=== PATIENT | male | born 1990 | race Caucasian/White ===

== ENCOUNTER → 2017-03-15 | Outpatient (CLI) | payer OTHER | LOC: BMCIMAGING 16:50 | PROVIDERS: ATTEND Family Medicine | DX: M54.2 Cervicalgia (principal) ==

== ENCOUNTER 2017-05-30 23:49 | Emergency (ER) | payer SELFPAY ==
[2017-05-30 23:56] VITALS: BP 108/72; PULSE 88; RESP 18; TEMP 98.2; O2SAT 97
[2017-05-31] MEDS ORDERED: CHLORDIAZEPOXIDE 25MG PREPK#6 BTL TAKEHOME ONE (00:42)
--- NOTE | 2017-05-31 00:42 | EDPHY ---
H & P Stated Complaint: REEVAULATION FOR ABCESS UNDER LEFT ARM. Time Seen by Provider: 05/31/17 00:11 HPI/ROS: HPI The patient presents for wound check. He was going through intake [facility] and they are staff requested that he come to the emergency room for a wound check. He is 4 days status post incision and drainage of multiple upper extremity abscesses which he sustained through injection drug use. The procedure was performed under procedural sedation in the emergency department. He has not changed his dressings since because he went to [facility] after he was in the emergency department. He took his 1st dose of Bactrim tonight. He denies any fevers or chills, nausea or vomiting. He does not have any arm pain. REVIEW OF SYSTEMS Constitutional: No fever, no chills. Skin: No rashes. Neurological: No headache. PMHx: Healthy Soc Hx: History of IV drug use, going to the [facility] PHYSICAL General Appearance: Alert, no distress Eyes: Pupils equal and round no pallor or injection ENT, Mouth: Mucous membranes moist Respiratory: Breathing comfortably Extremities: Left arm with deltoid abscess site with packing in place with moderate amount of whitish drainage, wound measures about 1 cm with pink granulation tissue surrounding it, the region is not tender to palpation and there is no surrounding erythema, I am not able to express any pus; there is a 2nd open wound with packing in place in the anterior medial portion of his mid arm, pink granulation tissue surrounds this, it is not tender Psychiatric: Patient is oriented X 3, there is no agitation Source: Patient Exam Limitations: No limitations - Personal History Current Tetanus Diphtheria and Acellular Pertussis (TDAP): Yes Tetanus Vaccine Date: within last 10 years - Medical/Surgical History Hx Asthma: No Hx Chronic Respiratory Disease: No Hx Diabetes: No Hx Cardiac Disease: No Hx Renal Disease: No Hx Cirrhosis: No Hx Alcoholism: No Hx HIV/AIDS: No Hx Splenectomy or Spleen Trauma: No Other PMH: IV DRUG USER, ABCESS. MEDICAL seizures. surgery right ankle surgery - Social History Smoking Status: Heavy smoker Constitutional: Initial Vital Signs Temperature (C) 36.8 C 05/30/17 23:53 Heart Rate 88 05/30/17 23:53 Respiratory Rate 18 05/30/17 23:53 Blood Pressure 108/72 05/30/17 23:53 O2 Sat (%) 97 05/30/17 23:53 O2 Delivery Mode Room Air Allergies/Adverse Reactions: No Known Allergies Allergy (Unverified 12/07/14 17:07) Medical Decision Making Procedures: Bedside skin and soft tissue left arm Ultrasound- performed and interpreted by me. Indication: Status post incision and drainage Findings: No cobblestoning, no fluid collection, no foreign body Impression: No fluid collection, no obvious cellulitis Differential Diagnosis: This is a 27-year-old male who presents with wound check, status post incision and drainage of left upper extremity abscesses performed in the emergency department 4 days ago. He has no systemic signs of illness. In the emergency department, large amount of packing was removed from both wounds, I was unable to express any pus. There is minimal tenderness of the area with no induration or erythema. Bedside ultrasound was performed showing no fluid collections. I feel he is healing appropriately from his procedure and there is no persistent infection. I have encouraged him to complete the course of Bactrim and we will dress his wounds here. He will be discharged to the [facility] with a course of Librium. Departure - Departure Disposition: Home, Routine, Self-Care Clinical Impression: Encounter for wound re-check Condition: Good Instructions: Warm Compress or Soak (ED) Additional Instructions: Please return to the emergency room for any additional redness, drainage, pain in your arm. You should change your dressings at least once a day. Is it is okay to get your wounds wet in the shower with regular water. Referrals: Josesito Avalos MD [Primary Care Provider] - As per Instructions
== END 2017-05-31 00:59 | disposition home or self-care (01) ==
DX: Z48.01 Encounter for change or removal of surgical wound dressing (principal); F17.200 Nicotine dependence, unspecified, uncomplicated

== ENCOUNTER 2017-10-13 08:42 | Inpatient (IN) | payer MEDICAID, OTHER ==
--- NOTE | 2017-10-13 09:00 | EDPHY ---
H & P Stated Complaint: Abcess at IV injection RUE site last week;also slipped/fell on same arm Time Seen by Provider: 10/13/17 08:49 HPI/ROS: CHIEF COMPLAINT: Right antecubital fossa pain, erythema, drainage HISTORY OF PRESENT ILLNESS: 27-year-old male history of IV cocaine use complaining of pain, erythema, drainage the right antecubital fossa for the past 3 days. He notes that the erythema has increased intensity, he also notes decreased range of motion of the right elbow. No fever no chills. No flu-like symptoms. No chest pain. No dyspnea. No known history of hepatitis C. No known history of cutaneous MRSA. REVIEW OF SYSTEMS: A ten point review of systems was performed and is negative with the exception of the items mentioned in the HPI PAST MEDICAL & SURGICAL HISTORY: No pertinent medical or surgical history SOCIAL HISTORY: IV cocaine use PHYSICAL EXAM (Prior to examination, patient consented to physical exam, hands were washed and my usual and customary physical exam procedures followed) 1) GENERAL: Well-developed, well-nourished, alert and oriented. Ppears uncomfortable, anxious. 2) HEAD: Normocephalic, atraumatic 3) HEENT: Pupils equal, round, reactive to light bilaterally. Sclera anicteric. 4) NECK: Full range of motion, no meningeal signs. 5) LUNGS: Clear auscultation bilaterally, no wheezes, no rhonchi, no retractions. 6) HEART: Regular rate and rhythm, no murmur, no heave, no gallop. 7) ABDOMEN: No guarding, no rebound, no focal tenderness, negative McBurney's, negative Marinelli's, negative Rovsing's, negative peritoneal sign, 8) MUSCULOSKELETAL: Right upper extremity: Right antecubital fossa erythema, induration, tense tissue, keeping the elbow extended approximately 120 degrees, unable to flex or extend beyond the secondary to pain. No crepitus. No lymphangitic streaking. Positive axillary adenopathy. Distal pulses are intact , capillary refill is brisk. 9) BACK: No visual or palpable abnormality. 10) SKIN: No rash, no petechiae. 11) Psychiatric: Patient is oriented X 3, there is no agitation. DIFFERENTIAL DIAGNOSIS: In no particular include but limited to compartment syndrome, necrotizing fasciitis, abscess, cellulitis, septic arthritis - Personal History Current Tetanus Diphtheria and Acellular Pertussis (TDAP): Yes Tetanus Vaccine Date: within last 10 years - Medical/Surgical History Hx Asthma: No Hx Chronic Respiratory Disease: No Hx Diabetes: No Hx Cardiac Disease: No Hx Renal Disease: No Hx Cirrhosis: No Hx Alcoholism: No Hx HIV/AIDS: No Hx Splenectomy or Spleen Trauma: No Other PMH: IV DRUG USER, ABCESS. seizures. right ankle surgery - Social History Smoking Status: Heavy smoker Constitutional: Initial Vital Signs Temperature (C) 36.7 C 10/13/17 08:44 Heart Rate 96 10/13/17 08:44 Respiratory Rate 18 10/13/17 08:44 Blood Pressure 118/69 10/13/17 08:44 O2 Sat (%) 98 10/13/17 08:44 O2 Delivery Mode Room Air Allergies/Adverse Reactions: acetaminophen [From Tylenol] Allergy (Verified 10/13/17 09:47) Itching Home Medications: Medication Instructions Recorded NK [No Known Home Meds] 10/13/17 Medical Decision Making - Diagnostics Imaging Results: Imaging Impressions Extremity Ultrasound 10/13/17 09:01 Impression: Findings consistent with cellulitis with associated right antecubital fossa phlegmon without junior abscess formation at this time. Continued clinical follow-up is recommended with repeat ultrasound to assess for progression to abscess. Results called and discussed with Doug Viramontes PA-C on October 13, 2017 at 1041 hours. ED Course/Re-evaluation: 8:59 a.m.: I reviewed the patient's old medical records. I am concerned about the extent of the patient's symptoms. Plan will be diagnostic studies and plan on admission. Given IV Ancef. Tetanus is already up-to-date. Care of patient under supervision of secondary supervising physician Dr Ochoa with whom I discussed case 9:46 a.m.: Multiple attempts by the the nursing staff have attempted to obtain IV access, unsuccessfully. Plan will be PICC line. 10:19 a.m.: Awaiting PICC line placement laboratory studies. I consulted with hospitalistDanae at this time, plan will be admission to Dr. Ware. - Data Points Medications Given: Discontinued Medications Oxycodone HCl (Oxycodone Ir) 5 mg PO ONCE ONE Stop: 10/13/17 12:00 Last Admin: 10/13/17 12:03 Dose: 5 mg Departure - Departure Disposition: [facility] Acute Clinical Impression: Right arm cellulitis, Intravenous cocaine abuse Condition: Fair
[2017-10-13] MEDS ORDERED: oxyCODONE IR 5 MG TAB PO ONE (11:59)
[2017-10-13] MEDS ORDERED: oxyCODONE IR 5 MG TAB ONE (12:02)
[2017-10-13] MEDS ORDERED: ONDANSETRON DISINTEGRATING 4 MG TAB PO PRN (13:15)
[2017-10-13] MEDS ORDERED: ONDANSETRON 4 MG/2 ML VIAL IVP PRN ×2 (13:15→16:35)
[2017-10-13] MEDS ORDERED: HYDROmorphONE/DILAUDID 1 MG/ML INJ IVP PRN (13:15)
[2017-10-13] MEDS ORDERED: NICOTINE 21 MG/24 HR PATCH TD PRN (13:31)
[2017-10-13 13:58] LABS: PLATELET COUNT 310 10^3/uL (150-400)
[2017-10-13] MEDS ORDERED: LIDOCAINE 1% 300 MG/30 ML SDV ONE (14:05)
[2017-10-13 14:07] LABS: INR 1.2 (0.83-1.16); PROTIME(PATIENT) 15.4 SEC (12.0-15.0)
--- NOTE | 2017-10-13 14:08 | GHP ---
[f rep st] HISTORY AND PHYSICAL DATE OF ADMISSION: 10/13/2017 CHIEF COMPLAINT: Right arm pain and swelling. HISTORY OF PRESENT ILLNESS: The patient is a 27-year-old male with history of IV cocaine abuse who presents to the emergency department with 1 week of right upper extremity pain and swelling. He states he has a long history of IV drug use. He is mostly just using cocaine at this point. He has injected into all extremities, as well as his neck, and his veins have been sobered, and the emergency department is unable to obtain labs. He last injected in his right AC fossa 2 weeks ago. Shortly after that, he began to have some discomfort and pain in the region. One week ago, this became a bit red and some swelling set in. Over the past several days, the swelling has increased, and there is more focal redness surrounding the right AC fossa. He reports last night there was some drainage which looked like bloody pus. He denies fevers, chills, or rigors. He denies chest pain or shortness of breath. In the emergency department, a right upper extremity nonvascular ultrasound showed evidence of phlegmon but no focal abscess. Due to inability to obtain IV access, PICC line is ordered, labs and blood cultures will be drawn, and he will be admitted to the hospital for further evaluation. PAST MEDICAL HISTORY: 1. IV drug abuse, mostly cocaine, though distant history of methamphetamine. 2. Tobacco abuse. PAST SURGICAL HISTORY: None pertinent. MEDICATIONS: He takes no medications. ALLERGIES: Acetaminophen. FAMILY HISTORY: His father had lung cancer. SOCIAL HISTORY: Patient lives independently. He smokes close to a pack of cigarettes per day. IV drug abuse as above. He denies alcohol. REVIEW OF SYSTEMS: A 10-point review of systems was performed and is negative as per HPI. OBJECTIVE: VITAL SIGNS: Temperature is 36.7, blood pressure 118/69, heart rate 96, respiratory rate 18. He is 98% on room air. GENERAL: Patient is awake, alert, oriented, in no acute distress. HEENT: Head is atraumatic, normocephalic. Pupils equal, round, reactive to light. Extraocular movements intact. Oropharynx clear. Mucous membranes are moist. NECK: Supple. There is no JVD. HEART: Regular rate and rhythm without murmur. LUNGS: Clear to auscultation bilaterally. ABDOMEN: Soft, nondistended. Normoactive bowel sounds. EXTREMITIES: His right upper extremity has a 3-4 cm localized area of erythema surrounding his right AC fossa. There is some skin breakdown and sanguinous drainage without junior pus. There is also circumferential significant right elbow swelling and edema. He is unable to flex or extend his elbow, nor is he able to tolerate passive range of motion of his elbow due to severe pain. Extremities otherwise warm, well perfused. NEUROLOGIC: Grossly nonfocal. LABORATORY DATA: CBC, basic metabolic panel, bilirubin, INR, sed rate, and blood cultures are all pending, will be obtained at the time of PICC placement which is ordered. IMAGING: Right upper extremity nonvascular ultrasound shows findings consistent with cellulitis, with associated right AC fossa phlegmon without junior abscess formation. ASSESSMENT AND PLAN: The patient is a 27-year-old male with history of IV drug abuse who is admitted to the hospital with right upper extremity cellulitis. 1. Right upper extremity cellulitis. I am concerned for septic joint, given his excruciating pain with any attempted range of motion. PICC line is ordered due to inability to achieve IV access in the emergency department. Labs are pending. Blood cultures will be drawn, and he will be started on IV vancomycin. I discussed the case with Dr. Cobos, Orthopedic Surgery. The patient will be made n.p.o., pending orthopedic evaluation. In the meantime, will obtain an x-ray of the elbow to evaluate for joint effusion, and orthopedist will decide if he warrants joint aspiration to rule out septic joint and consider need for operative intervention. Will also defer MRI to our orthopedic real estate consultant. Infectious Disease consult is requested. I do not detect heart murmur. 2. IV drug abuse. Patient has had success with sobriety in the past and is plugged in with the [facility], as well as Narcotics Anonymous. Will request Case Management consult for ongoing resource counseling. In addition, will check HIV and hepatitis panel, both of which were negative in 2013. 3. Tobacco abuse. P.r.n. Nicoderm patch while hospitalized. 4. Basilic vein thrombosis noted on PICC placement. This is a superficial UE vein and his thrombosis may be related to his IVDA. No indication for anticoagulation, especially in the absence of symptoms 5. Deep venous thrombosis prophylaxis. Patient is low risk. Will place SCDs. CODE STATUS: Patient is full code. DISPOSITION: Patient admitted to inpatient status. I anticipate greater than 48 hours hospitalization for ongoing management of his right upper extremity infection. /[id number]/MODL MTDD
--- NOTE | 2017-10-13 14:19 | PDMN ---
Medical Necessity Medical necessity: C/M review: est. > 2 MN LOS for eval and TX of acute and persistent right upper extremity cellulitis requiring planned Orthopedic consult , Infectious disease consult, PICC placement, ontoing IV Vancomycin, comorbid history of IV drug abuse, mostly cocaine, though distant history of methamphetamine, tobacco abuse per H/P.
[2017-10-13] MEDS: oxyCODONE IR 5 MG TAB PO PRN ×3 (14:33→22:01)
[2017-10-13] MEDS: IBUPROFEN 200 MG TAB PO PRN ×2 (14:33→22:03)
[2017-10-13] MEDS ORDERED: BACITRACIN 50,000 UNITS/10 ML SYR IRR ONE (15:22)
[2017-10-13] MEDS ORDERED: POLYMYXIN B SULFATE 500,000 UNIT/10 ML SYR IRR ONE (15:22)
[2017-10-13] MEDS ORDERED: BUPIVACAINE 0.5% 10 ML SDV ONE (15:22)
--- NOTE | 2017-10-13 15:24 | PDHPUP ---
History & Physical Update H&P update statement: This history and physical update is based on an assessment of the patient which was completed after admission or registration (within 24 hours), but prior to the surgery/procedure. H&P update: H&P reviewed & patient examined, no change in patient's condition since H&P completed
[2017-10-13] MEDS ORDERED: BUPIVACAINE/EPI 0.5% 30 ML SDV ONE (15:25)
[2017-10-13] MEDS ORDERED: MIDAZOLAM 2 MG/2 ML VIAL IVP ONE (15:31)
--- NOTE | 2017-10-13 15:31 | PDANEPAE ---
ANE History of Present Illness 27 YO for i and d r arm ANE Past Medical History - Pulmonary History Hx Oxygen in Use at Home: No Hx Sleep Apnea: No - Endocrine History Hx Diabetes: No - Chronic Pain History Chronic Pain: No ANE Review of Systems Review of Systems: - Exercise capacity METS (RN): 4 METS ANE Patient History - Allergies Allergies/Adverse Reactions: acetaminophen [From Tylenol] Allergy (Verified 10/13/17 09:47) Itching - Home Medications Home Medications: NK [No Known Home Meds] 10/13/17 [Last Taken Unknown] - NPO status NPO Status: no food or drink >8 hours - Anes Hx Anes Hx: no prior problems - Smoking Hx Smoking Status: Current every day smoker ANE Labs/Vital Signs - Labs Result Diagrams: 10/13/17 13:47 10/13/17 13:47 - Vital Signs Blood Pressure: 130/58 Heart Rate: 91 Respiratory Rate: 16 O2 Sat (%): 96 Height: 5 ft 11.04 in Weight: 68.039 kg ANE Physical Exam - Airway Mallampati Score: Class 2 - Pulmonary Pulmonary: no respiratory distress - Cardiovascular Cardiovascular: regular rate and rhythym - ASA Status ASA Status: II ANE Anesthesia Plan Anesthesia Plan: general endotracheal anesthesia
[2017-10-13] MEDS ORDERED: MIDAZOLAM 2 MG/2 ML VIAL ONE (15:32)
[2017-10-13] MEDS: VANCOMYCIN 1.25 GM in NS 250 ML IV SCH ×2 (15:36→16:02)
[2017-10-13] MEDS ORDERED: REMIFENTANIL HCL 1 MG VIAL ONE (15:37)
[2017-10-13] MEDS ORDERED: fentaNYL 100 MCG/2 ML INJ ONE ×3 (15:37→16:44)
[2017-10-13] MEDS ORDERED: PROPOFOL/EMULSION 500 MG/50 ML BOTTLE IV ONE (15:38)
--- NOTE | 2017-10-13 16:13 | GCON ---
[f rep st] CONSULTATION DATE OF CONSULTATION: 10/13/2017 This is a consultation on behalf of Dr. Brea Ware. DATE OF OPERATION: October 13, 2017. CHIEF COMPLAINT: Right elbow abscess. HISTORY OF PRESENT ILLNESS: This patient is a 27-year-old male who has a history of IV cocaine use, who presented to the ER with pain and erythema of his right antecubital fossa and inability to bend t he elbow. He states that he began experiencing the symptoms about 5-6 days ago, and has not been abl e to move his elbow well for the past about 4-5 days. He presented to the ER today due to worsening pain. Over the last few days the area over his anterior distal biceps began becoming more and more s wollen and the area opened up about a day ago, with cloudy and bloody drainage yesterday. He present ed to the ER today due to the worsening pain. He was seen and evaluated in the ER. Dr. Ware with the hospitalist service was consulted for inpatient management. A PICC line was ordered due to diff icult IV access and ultrasound was done. I was called for consultation, and I recommended an x-ray t o be performed. REVIEW OF SYSTEMS: A 10-point review of systems is performed and is negative with the exception of t he items mentioned in HPI. PAST MEDICAL/SURGICAL HISTORY: No pertinent medical or surgical history, apart from the drug use. SOCIAL HISTORY: History of IV cocaine use. He last used the day before yesterday at about 4 p.m. PHYSICAL EXAMINATION: GENERAL: He is in no apparent distress. He is lying in bed. He is alert and oriented x3. EXTREMITY: Right arm, there is an area about 4 x 4 cm over the anterior distal bicep with erythema. There is induration of the skin of the entire distal bicep. The bicep is hypertonic. There is clou dy drainage from a puncture site over the erythematous area. The patient rests the elbow about 90 de grees, passive range of motion, mid arc of motion of about 30 degrees, does not yield much pain in th e elbow joint. Only causes pain anteriorly over the abscess. Rotation of the forearm does not yield any pain in the elbow, and palpation over the elbow joint post eriorly and laterally does not yield any pain. He is neurovascularly intact distally. LABS: Lab are significant for a white count of 10.49 and ESR of 54. IMAGING: Ultrasound is significant for possible phlegmon in the antecubital fossa. X-ray reviewed b y the radiologist and by me, is significant for gas in his anterior elbow at the level of the erythem a described in the exam. There is no sign of joint effusion seen. ASSESSMENT/PLAN: This is likely a soft tissue abscess at the anterior elbow due to IV drug use, alth ough, the ultrasound shows a phlegmon and no discrete abscess. The presence of air on the x-ray is c oncerning for abscess formation. By exam, passive flexion, extension, and rotation of his elbow does not yield much pain. The x-ray does not show an effusion making a septic elbow less likely. At thi s point, I feel that aspiration of the elbow in the presence of a junior abscess poses to much risk fo r infecting a potentially uninfected elbow joint. RECOMMENDATION: At this point is incision and drainage of the abscess with intraoperative cultures. He will be started on vancomycin after the I and D, and I will follow him clinically in the hospital for improvement. Thank you for this consultation. /[id number]/MODL
[2017-10-13] MEDS ORDERED: NALOXONE HCL 0.4 MG/ML INJ IVP PRN (16:35)
--- NOTE | 2017-10-13 16:36 | POSTANESTH ---
Post Anesthetic Evaluation Cardiovascular Status: Normal, Stable Respiratory Status: Normal, Stable Level of Consciousness/Mental Status: Can Participate in Eval Pain Control: Adequate, Prn Tx Ordered Nausea/Vomiting Control: Adequate, Prn Tx Ordered Complications Possibly Related to Anesthesia: None Noted
[2017-10-13] MEDS: fentaNYL 100 MCG/2 ML INJ IVP PRN ×3 (16:46→16:59)
--- NOTE | 2017-10-13 17:06 | ASMTCMCOM ---
CM Note CM Note Notes: Pt presented to the ED via triage for right arm swelling, pain, and infection related to possible abscess. Pt getting a PICC line for IV abx. Patient has a history of IV cocaine drug use and states "and sometimes meth." Patient is a pleasant, calm and cooperative young man who reports more than 10 years of cocaine use but didn't start using needles until a few years ago. Pt states he goes to [facility] ([facility]) for needle exchange and "usually I try to do a really good job and make sure everything is clean so I don't know how this happened." Pt states he has been through rehab and OP treatment programs before "but I'm not interested in rehab but I know I should probably stop using needles." Pt's PCP is Dr. Avalos but he hasn't seen him in a couple of years. Patient denies receiving any outpatient counseling or substance treatment at this time. Patient is open and interested in quitting using needles and other outpatient substance abuse treatment. [place] and has a roommate. He works at [employer] on the [employer] shift and is really concerned about how being admitted might cost him his job. This CM and the ED Provider Deann Viramontes offered to provide a work excuse and/or speak to his employer if needed. Pt declined at this time but states he will probably need a work excuse when discharged. Pt states he has a bus pass and doesn't drive (due to a DUI in the past). Patient states his father lives locally "but we don't talk." Pt states he has no other friends or family for support in the area but states he can get a ride when discharged. When asked if patient had any drugs in his personal belongings, pt stated "no drugs but I have a couple of needles." Pt then voluntarily offered to let this CM search his backpack and belongings for drugs and needles. Security assisted with searching belongings and removing needles from his belongings. Exact DC needs unknown, CM to follow. Date Signed: 10/13/2017 05:05 PM Electronically Signed By:Tiffany Flores RN
--- NOTE | 2017-10-13 17:07 | ASMTLACE ---
KALEY Acuity / Level of Answers: Yes Care: Did the patient have an inpatient admission? # of Emergency department Answers: 1-2 visits in the last 6 months Social determinants Answers: History of substance abuse (ETOH, street drugs, prescription drugs, etc.) Score: 7 Date Signed: 10/13/2017 05:07 PM Electronically Signed By:Tiffany Flores RN
--- NOTE | 2017-10-13 17:13 | GOP ---
[f rep st] OPERATIVE REPORT DATE OF OPERATION: SURGEON: Stalin Cobos MD PREOPERATIVE DIAGNOSIS: Right anterior elbow and antecubital fossa abscess, deep. POSTOPERATIVE DIAGNOSIS: Right anterior elbow and antecubital fossa abscess, deep. PROCEDURE PERFORMED: Right anterior elbow abscess incision and drainage, deep. FINDINGS: ESTIMATED BLOOD LOSS: 10 cc. INDICATIONS: This is a 27-year-old male who presented to the ER with right elbow pain, swelling, and decreased range of motion. He had used IV cocaine several days prior to presentation. He says it began 5 or 6 days ago, began worsening. I was consulted by the hospitalist. The clinical appearance was that of an abscess. An x-ray showed some air in the anterior subcutaneous tissues. This is concerning for abscess formation. I and D were indicated. I discussed with the patient risks and benefits. Risks include pain, bleeding, infection, damage to surrounding structures, numbness, stiffness, need for further operations including repeat I and D. the patient understood the risks and wished to proceed. DESCRIPTION OF PROCEDURE: The patient was seen in preoperative holding area. He was given opportunity to ask more questions. All of his questions were answered. Consent was signed. He was then transferred to the operative suite. Care was taken to transfer the patient from the [place] to operating room table. Care was taken to pad all bony prominences. General anesthesia was induced by the anesthesia team. Time-out was called including surgical and anesthesia teams, confirming the surgical site and procedure to be performed. Antibiotics were held until cultures were taken. I marked out a longitudinal incision over the swollen area as indicated in the consultation report. There was a small opening where the abscess had auto-drained the day prior. I carefully dissected down through the skin. The skin was very edematous and indurated. I dissected down to the abscess cavity. There was not much junior purulent material. There was dishwater-appearing fluid, old organized purulent material, and some necrotic-appearing material. I carefully opened up the spaces around the muscle and into the antecubital fossa. There were no additional pockets of pus. The muscle was examined. The main belly of the biceps was contractile. Some of the lateral biceps and brachialis appeared somewhat fibrotic and was not grossly necrotic in appearance; however, it was quite stiff and hard to palpation, indicating a possible myositis component. Of note, cultures were taken, and then antibiotics were started. Dedridement was performed sharply with scissors. At this point, the wound was irrigated copiously with several liters of sterile saline with bacitracin. After this was done, the wound was closed with #2 nylon. A 1/2-inch Ewa drain was left in the wound to allow for drainage. A sterile dressing was applied. The patient tolerated the procedure well, was then taken to PACU in stable condition. POSTOPERATIVE CONDITION: Stable. POSTOPERATIVE PLAN: The patient will be admitted back to the hospitalist service. He will be started on IV antibiotics which will be tailored to culture results. I will follow the patient while he is in the hospital. /[id number]/MODL MTDD
[2017-10-14] MEDS: HYDROmorphONE/DILAUDID 2 MG/ML INJ IVP PRN ×5 (00:30→20:47)
[2017-10-14 02:57] LABS: HEPATITIS B SURFACE ANTIGEN NEGATIVE (NEGATIVE)
[2017-10-14 03:14] LABS: HEPATITIS B CORE AB TOTAL NEGATIVE (NEGATIVE); HEPATITIS C ANTIBODY TOTAL NEGATIVE (NEGATIVE); HIV TYPE 1 AND 2 NEGATIVE (NEGATIVE)
[2017-10-14] MEDS: oxyCODONE IR 5 MG TAB PO PRN ×4 (05:26→18:21)
[2017-10-14] MEDS: IBUPROFEN 200 MG TAB PO PRN ×3 (05:27→20:48)
[2017-10-14] MEDS: VANCOMYCIN 1.25 GM in NS 250 ML IV SCH ×2 (05:30→18:55)
--- NOTE | 2017-10-14 08:29 | SOAPPROG ---
SOAP Progress Note Assessment/Plan: Assessment:POD#1 s/p R elbow abscess I&D Plan: -cont IV abx -f/u cultures -pain ctrl -I plan on removing drain on Sat, however this may be done sooner - please contact me -appreciate care of hospitalist service 10/14/17 08:27 Subjective: Doing ok this am. Elbow is sore after surgery. Objective: Vital Signs Temp Pulse Resp BP Pulse Ox 36.7 C 78 16 135/72 H 96 10/14/17 07:06 10/14/17 07:06 10/14/17 07:06 10/14/17 07:06 10/14/17 07:06 Microbiology 10/13/17 16:02 Gram Stain - Final Elbow - Eswab 10/13/17 16:02 Gram Stain - Final Elbow - Eswab 10/13/17 15:00 Gram Stain - Final Elbow - Swab Laboratory Results 10/13/17 13:47 10/13/17 13:47 10/13/17 10/14/17 10/15/17 05:59 05:59 05:59 Intake Total 2960 265 Output Total 1175 Balance 1785 265 PT 15.4 SEC (12.0-15.0) H 10/13/17 13:47 INR 1.20 (0.83-1.16) H 10/13/17 13:47 R elbow -dressing in place, no breakthrough -NC intact distally ICD10 Worksheet Patient Problems: Problems Problem Status Onset Intravenous cocaine abuse Acute Right arm cellulitis Acute
[2017-10-14] MEDS: ALTEPLASE 2 MG VIAL IVP PRN ×2 (10:42→10:44)
[2017-10-14] MEDS: PIPERACILLIN/TAZO 3.375 GM/DEX 50 ML IV SCH ×2 (11:38→18:21)
--- NOTE | 2017-10-14 11:48 | GCON ---
[f rep st] CONSULTATION INFECTIOUS DISEASE CONSULTATION DATE OF CONSULTATION: 10/14/2017 REFERRING PHYSICIAN: Brea Ware MD REASON FOR CONSULTATION: Right upper extremity abscess. HISTORY OF PRESENT ILLNESS: Patient is a 27-year-old male with a past medical history of injection drug use whom I am asked to see in consultation for a right upper extremity abscess/skin and soft tissue infection. The patient describes having approximately 5-6 days of right upper extremity pain, which began approximately 1 day after injecting cocaine into his right upper extremity. The pain progressed over time and became so severe that he could not straighten or move his arm without use of the left arm. The day before he presented to the hospital, he describes having purulent drainage from the injection site. This was not foul smelling in nature. Based on those findings , patient ultimately presented to the hospital where an ultrasound was performed , which did not show a clearly defined abscess but was more compatible with phlegmonous inflammation. Plain film of the elbow showed a small dot of gas being present. Based on his clinical findings, he was taken to the operating room for incision and drainage yesterday. Intraoperatively, the skin was noted to be edematous and indurated, without significant junior purulence noted but dishwater-appearing fluid and old purulence with some necrotic soft tissue being noted. Gram stain of the specimen shows white blood cells without organisms noted. Cultures are no growth to date, although these are young. The patient did not have associated fevers, chills or night sweats. He believes his tetanus is up to date currently. He does not share needles and gets his needles from the needle exchange. He most commonly uses sterile water provided by the needle exchange for dissolving his cocaine. He does occasionally use tap water. He does not lick his needles. The patient has been started empirically on vancomycin. Given the above findings, I am now asked to assist in his ongoing management. PAST MEDICAL HISTORY: Seizure disorder with last seizure approximately 1 year ago; he is not on any anticonvulsants currently. PAST SURGICAL HISTORY: Reconstruction of the ankle associated with traumatic injury. CURRENT MEDICATIONS: Vancomycin 1.25 g IV q.12 hours, Nicoderm CQ patch applied daily, Motrin as needed for pain, Dilaudid as needed for severe pain. ALLERGIES: Patient describes a rash with acetaminophen. SOCIAL HISTORY: Patient smokes 1/2 to 1 pack per day. No alcohol use. Uses injection cocaine and notes rare use of heroin. Currently is working at a local convenience store. FAMILY HISTORY: Father with lung cancer associated with smoking. REVIEW OF SYSTEMS: Outside that noted in the HPI, remainder of 10-system review is unremarkable. PHYSICAL EXAMINATION: VITAL SIGNS: Temperature 36.7, heart rate 78, respiratory rate 16, blood pressure 135/72, oxygen saturation 96% on room air. GENERAL: Patient is a thin male in no acute distress. He appears nontoxic. HEENT: There is no scleral icterus, conjunctival injection, or conjunctival petechiae. Oropharynx shows moist mucous membranes with no thrush. Dentition is in fair repair. There is no nasal discharge. There is no tenderness over the frontal, maxillary or mastoid area. NECK: Supple, without palpable lymphadenopathy or thyromegaly. CHEST: Clear to auscultation bilaterally, without adventitious sounds. The respiratory effort is normal. CARDIOVASCULAR : Regular rate and rhythm, without murmurs, gallops, or rubs. ABDOMEN: Soft, nontender, nondistended. There is no palpable organomegaly. Bowel sounds are present. MUSCULOSKELETAL: The right upper extremity is dressed postoperatively ; patient has full function of his right hand; there is no erythema above or below his dressing margin. SKIN: Multiple tattoos are present. There are no stigmata of endocarditis. The skin is warm and dry to touch. NEUROLOGIC: Patient is alert and interacts appropriately with examiner. Cranial nerves 2- 12 are grossly intact. Sensation is grossly intact. LYMPHATICS: No cervical or supraclavicular nodes palpable. There is no lymphangitis in the right upper extremity. LABORATORY DATA: White blood cell count 10.5, hematocrit 36.0, platelets 310, neutrophils 75%, lymphocytes 16%, ESR 54, serum creatinine 0.6, serum lactate 0.7, HIV antibody negative, hepatitis C antibody negative, hepatitis B surface antigen and core antibody negative. Hepatitis B surface antibody is pending. Blood cultures x2 sets are no growth. Soft-tissue cultures show presence of white blood cells with no organisms noted on Gram stain, and culture is currently pending. Elbow x-ray shows a small dot of gas present. IMPRESSION: Right upper extremity abscess/phlegmon/skin and soft tissue infection in the setting of injection drug use: This is now status post incision and drainage. Most likely, this will be due to Staphylococcus aureus or beta-hemolytic streptococci. Other organisms, such as gram-negative rods or anaerobes, are also considerations in the setting of injection drug use. Additionally, there is a small area of probable gas noted in the soft tissues, which may be related to his injection drug use, although anaerobic corinna would also be consideration. RECOMMENDATIONS: 1. Agree with empiric vancomycin. 2. Add Zosyn for gram-negative rods and anaerobic activity pending additional culture data. 3. Follow up cultures as available with modification of antibiotics accordingly. 4. Follow clinical exam post incision and drainage. 5. Await hepatitis B surface antibody. If this is negative, he would require hepatitis B vaccination given his risk for this disease associated with injection drug use. 6. Thank you for this consultation. We will continue to follow the patient with you. /[id number]/MODL MTDD
--- NOTE | 2017-10-14 11:49 | HOSPPROG ---
Hospitalist Progress Note Assessment/Plan: 27y male with c/o elbow pain. First encounter, chart reviewed. D/W Dr Ochoa. #POD#1 s/p R elbow abscess I&D appreciate ortho consult cont abx per ID #IVDA no signs of withdrawl currently #Tobacco abuse cessation #Superficial thrombus no need for anticoagulation #Dispo unclear, cont IV abx in hospital setting Subjective: Having some pain and throbbing in arm. No other issues. Objective: Vital Signs Temp Pulse Resp BP Pulse Ox 36.8 C 92 18 139/66 H 94 10/14/17 11:06 10/14/17 11:06 10/14/17 11:06 10/14/17 11:06 10/14/17 11:06 Microbiology 10/13/17 16:02 Gram Stain - Final Elbow - Eswab 10/13/17 16:02 Gram Stain - Final Elbow - Eswab 10/13/17 15:00 Gram Stain - Final Elbow - Swab Laboratory Results 10/13/17 13:47 10/13/17 13:47 10/13/17 10/14/17 10/15/17 05:59 05:59 05:59 Intake Total 2960 265 Output Total 1175 Balance 1785 265 PT 15.4 SEC (12.0-15.0) H 10/13/17 13:47 INR 1.20 (0.83-1.16) H 10/13/17 13:47 - Physical Exam Constitutional: no apparent distress, appears nourished, uncomfortable Eyes: PERRL, anicteric sclera, EOMI Ears, Nose, Mouth, Throat: moist mucous membranes, hearing normal, ears appear normal Cardiovascular: No JVD, No tachycardia, No edema Respiratory: no respiratory distress, no rales or rhonchi, reduced air movement Gastrointestinal: normoactive bowel sounds, No tenderness, No ascites Skin: warm, erythema, No mottled Musculoskeletal: full muscle strength, joint tenderness, pain with ROM Neurologic: AAOx3 Psychiatric: interacting appropriately, not anxious, not encephalopathic, thought process linear ICD10 Worksheet Patient Problems: Problems Problem Status Onset Right arm cellulitis Acute Intravenous cocaine abuse Acute
[2017-10-15] MEDS: PIPERACILLIN/TAZO 3.375 GM/DEX 50 ML IV SCH ×5 (00:17→23:50)
[2017-10-15] MEDS: oxyCODONE IR 5 MG TAB PO PRN ×4 (00:18→23:50)
[2017-10-15] MEDS: HYDROmorphONE/DILAUDID 2 MG/ML INJ IVP PRN ×4 (01:17→21:50)
[2017-10-15] MEDS: VANCOMYCIN 1.25 GM in NS 250 ML IV SCH ×2 (06:18→18:15)
--- NOTE | 2017-10-15 10:16 | HOSPPROG ---
Hospitalist Progress Note Assessment/Plan: 27y male with c/o elbow pain. First encounter, chart reviewed. #right upper ext abscess from IVDU -s/p I & D -vancomycin and Zosyn -appreciate ortho and ID #IVDU -he has abstained for 9 months, then used cocaine iv due to recent stressors -he knows this is an issue, motivated to stop using -HIV is negative, Hep B antibody is pending #Tobacco abuse -cessation, nicotine patch #Superficial thrombus no need for anticoagulation #underweight w a BMI of 20 #Dispo pending Subjective: Doug said his right upper ext is tender. Objective: Vital Signs Temp Pulse Resp BP Pulse Ox 36.7 C 99 16 97/63 L 95 10/15/17 07:17 10/15/17 07:17 10/15/17 07:17 10/15/17 07:17 10/15/17 07:17 Microbiology 10/13/17 16:02 Gram Stain - Final Elbow - Eswab 10/13/17 15:00 Gram Stain - Final Elbow - Swab 10/13/17 16:02 Gram Stain - Final Elbow - Eswab Laboratory Results 10/13/17 13:47 10/15/17 05:05 10/14/17 10/15/17 10/16/17 05:59 05:59 05:59 Intake Total 2960 1450 74 Output Total 1175 1250 Balance 1785 200 74 PT 15.4 SEC (12.0-15.0) H 10/13/17 13:47 INR 1.20 (0.83-1.16) H 10/13/17 13:47 - Physical Exam Constitutional: no apparent distress, appears nourished, No not in pain Eyes: PERRL Ears, Nose, Mouth, Throat: hearing normal Respiratory: no respiratory distress Skin: warm, normal color, other (multiple tattoos, has a dressing in place on right bicep area) Musculoskeletal: full muscle strength Neurologic: AAOx3 Psychiatric: interacting appropriately, not anxious ICD10 Worksheet Patient Problems: Problems Problem Status Onset Intravenous cocaine abuse Acute Right arm cellulitis Acute
[2017-10-15] MEDS ORDERED: MAGNESIUM HYDROXIDE 30 ML UDCUP PO PRN (10:47)
[2017-10-15] MEDS ORDERED: POLYETHYLENE GLYCOL 3350 17 GM PKT PO PRN (10:47)
[2017-10-15] MEDS ORDERED: LACTULOSE 20 GM/30 ML UDCUP PO PRN (10:47)
[2017-10-15] MEDS ORDERED: BISACODYL 10 MG SUPP PR PRN (10:47)
[2017-10-15] MEDS: NICOTINE 21 MG/24 HR PATCH TD SCH (11:03)
--- NOTE | 2017-10-15 12:45 | PCMIDPN ---
Assessment/Plan: Assessment/Plan: 1. Right AC fossa abscess: s/p I & D - operative cultures so far ngtd - blood cx ngtd - Currently on VAnco + zosyn. - If cultures remain negative tomorrow, will likely try to tailor down coverage - Hopefully will be able to examine wound. currently with dressings by ortho and apparently naresh drain in place -Cutlures reviewed with patient. -wbc elevated on admit. will repeat for AM - care coordinated with Rn. . 2. IVda: - HIV/HCV/Hepatitis B s AG negative - Hepatitis B s AB pending Meds vanco 1. 25gm q12- 10/14/17 zosyn 3.375gm q6- 09/20/17 Subjective: afebrile. feeling better but still has pain. denies sob, abd pain or diarrhea. denies numbness/tingling in extremities. Objective: Vital Signs Temp Pulse Resp BP Pulse Ox 36.7 C 99 16 97/63 L 95 10/15/17 07:17 10/15/17 07:17 10/15/17 07:17 10/15/17 07:17 10/15/17 07:17 Microbiology 10/13/17 16:02 Gram Stain - Final Elbow - Eswab 10/13/17 16:02 Gram Stain - Final Elbow - Eswab 10/13/17 15:00 Gram Stain - Final Elbow - Swab Laboratory Results 10/13/17 13:47 10/15/17 05:05 10/14/17 10/15/17 10/16/17 05:59 05:59 05:59 Intake Total 2960 1450 74 Output Total 1175 1250 Balance 1785 200 74 ESR 54 MM/HR (0-15) H 10/13/17 13:47 - Physical Exam General Appearance: alert, no apparent distress Respiratory: lungs clear Cardiac/Chest: regular rate, rhythm Extremities: other (RUE in dressing by ortho. RN tells me we are not to take it down.), No swelling Abdomen: normal bowel sounds, non-tender, soft, No distended Skin: No erythema ICD10 Worksheet Patient Problems: Problems Problem Status Onset Intravenous cocaine abuse Acute Right arm cellulitis Acute
[2017-10-15] MEDS: IBUPROFEN 200 MG TAB PO PRN ×2 (15:52→21:51)
--- NOTE | 2017-10-15 16:49 | ASMTCMCOM ---
CM Note CM Note Notes: CM met w/ pt for dispo planning and to provide emotional support. CM spent around 30 mins w/ pt. Pt reports that he has been going to an intensive outpatient program in [place]. Pt reports that he has an narcotic anonymous (NA) book that he reads. Pt reports that he finds it helpful attending NA meetings. Pt should not have any d/c needs. CM available for changes. Plan: Independent Date Signed: 10/15/2017 04:48 PM Electronically Signed By:ASHLIE Christy
--- NOTE | 2017-10-15 17:52 | SOAPPROG ---
SOAP Progress Note Assessment/Plan: Assessment:POD#2 s/p R elbow abscess I&D -clinically improving -cultures growing Staph intermedius -naresh drain removed this evening Plan: -cont IV abx, tailored to culture results -follow cultures -pain ctrl -appreciate care of hospitalist and ID service -daily dressing change 10/14/17 08:27 10/15/17 17:48 Subjective: Mr. Muir is doing well this evening. Arm is still sore, but he admits that it is improving. He is able to move it more. Objective: Vital Signs Temp Pulse Resp BP Pulse Ox 36.9 C 105 H 16 96/53 L 95 10/15/17 15:44 10/15/17 15:44 10/15/17 15:44 10/15/17 15:44 10/15/17 15:44 Microbiology 10/13/17 16:02 Gram Stain - Final Elbow - Eswab 10/13/17 16:02 Gram Stain - Final Elbow - Eswab 10/13/17 15:00 Gram Stain - Final Elbow - Swab Laboratory Results 10/13/17 13:47 10/15/17 05:05 10/14/17 10/15/17 10/16/17 05:59 05:59 05:59 Intake Total 2960 1450 74 Output Total 1175 1250 Balance 1785 200 74 PT 15.4 SEC (12.0-15.0) H 10/13/17 13:47 INR 1.20 (0.83-1.16) H 10/13/17 13:47 R elbow -dressing removed, naresh removed. Old organized fibrinous material expressed -the clinical appearance of the elbow is improved from initial presentation. Diffuse swelling is decreased -gentle ROM in mid-arc of motion with minimal pain, still has marked discomfort with attempted extension -able to lift arm off pillow (unable to perform this prior) ICD10 Worksheet Patient Problems: Problems Problem Status Onset Intravenous cocaine abuse Acute Right arm cellulitis Acute
[2017-10-15] MEDS: SENNOSIDES/DOCUSATE SODIUM TAB PO SCH (22:02)
[2017-10-16] MEDS: IBUPROFEN 200 MG TAB PO PRN ×2 (05:43→18:18)
[2017-10-16] MEDS: PIPERACILLIN/TAZO 3.375 GM/DEX 50 ML IV SCH ×3 (05:44→18:18)
[2017-10-16] MEDS: oxyCODONE IR 5 MG TAB PO PRN ×4 (05:44→22:49)
[2017-10-16 06:07] LABS: PLATELET COUNT 266 10^3/uL (150-400)
[2017-10-16] MEDS: VANCOMYCIN 1.25 GM in NS 250 ML IV SCH (06:24)
[2017-10-16] MEDS: HYDROmorphONE/DILAUDID 2 MG/ML INJ IVP PRN (08:06)
[2017-10-16] MEDS: SENNOSIDES/DOCUSATE SODIUM TAB PO SCH ×2 (08:07→20:10)
[2017-10-16] MEDS: NICOTINE 21 MG/24 HR PATCH TD SCH (08:07)
[2017-10-16] MEDS: PATCH REMOVAL 1 EA PATCH TD SCH (08:25)
--- NOTE | 2017-10-16 08:30 | SOAPPROG ---
SOAP Progress Note Assessment/Plan: Assessment:POD#3 s/p R elbow abscess I&D -clinically improving -all cultures growing Staph intermedius -leukocytosis unchanged Plan: -cont IV abx, tailored to culture results -follow cultures -pain ctrl -appreciate care of hospitalist and ID service -daily dressing change Subjective: Notes that his arm hurts after he woke up this am. He states that ROM is improving Objective: Vital Signs Temp Pulse Resp BP Pulse Ox 36.8 C 98 18 104/56 L 93 10/16/17 00:00 10/16/17 00:00 10/16/17 00:00 10/16/17 00:00 10/16/17 00:00 Microbiology 10/13/17 16:02 Gram Stain - Final Elbow - Eswab 10/13/17 16:02 Gram Stain - Final Elbow - Eswab 10/13/17 15:00 Gram Stain - Final Elbow - Swab Laboratory Results 10/16/17 05:45 10/16/17 05:45 10/15/17 10/16/17 10/17/17 05:59 05:59 05:59 Intake Total 1450 424 Output Total 1250 Balance 200 424 PT 15.4 SEC (12.0-15.0) H 10/13/17 13:47 INR 1.20 (0.83-1.16) H 10/13/17 13:47 R elbow -dressing in place, I removed the naresh last night -diffuse swelling over upper arm and prox forearm improving -extension to about 30 deg, this is improved over preop (he rested elbow at about 90 on presentation) ICD10 Worksheet Patient Problems: Problems Problem Status Onset Intravenous cocaine abuse Acute Right arm cellulitis Acute
--- NOTE | 2017-10-16 09:49 | HOSPPROG ---
Hospitalist Progress Note Assessment/Plan: 27y male with c/o elbow pain. #right upper ext abscess from IVDU, 2/2 streptococcus intermedius -s/p I & D -vancomycin dc and Zosyn only -appreciate ortho and ID #IVDU -he has abstained for 9 months, then used cocaine iv due to recent stressors -he knows this is an issue, motivated to stop using -HIV is negative, Hep B antibody is pending #Tobacco abuse -cessation, nicotine patch #Superficial thrombus no need for anticoagulation #underweight w a BMI of 20 #Dispo pending Subjective: Doug says his arm is feeling better. Objective: Vital Signs Temp Pulse Resp BP Pulse Ox 36.6 C 68 12 134/71 H 95 10/16/17 08:00 10/16/17 08:00 10/16/17 08:00 10/16/17 08:00 10/16/17 08:00 Microbiology 10/13/17 16:02 Gram Stain - Final Elbow - Eswab 10/13/17 16:02 Gram Stain - Final Elbow - Eswab 10/13/17 15:00 Gram Stain - Final Elbow - Swab Laboratory Results 10/16/17 05:45 10/16/17 05:45 10/15/17 10/16/17 10/17/17 05:59 05:59 05:59 Intake Total 1450 424 Output Total 1250 Balance 200 424 PT 15.4 SEC (12.0-15.0) H 10/13/17 13:47 INR 1.20 (0.83-1.16) H 10/13/17 13:47 - Physical Exam Constitutional: no apparent distress, other (thin) Eyes: PERRL Ears, Nose, Mouth, Throat: hearing normal Cardiovascular: regular rate and rhythym Respiratory: no respiratory distress Skin: warm, other (right arm ac area with dressing in place) Musculoskeletal: full muscle strength Neurologic: AAOx3 Psychiatric: interacting appropriately, not anxious ICD10 Worksheet Patient Problems: Problems Problem Status Onset Intravenous cocaine abuse Acute Right arm cellulitis Acute
[2017-10-16] MEDS ORDERED: ALTEPLASE 2 MG VIAL IVP ONE (10:45)
[2017-10-16] MEDS ORDERED: ALTEPLASE 2 MG VIAL IVP PRN (11:03)
--- NOTE | 2017-10-16 15:07 | PCMIDPN ---
Assessment/Plan: Assessment: Right antecubital abscess secondary to Streptococcus intermedius following injection drug use with cocaine. Patient states that the arm is starting to feel better gradually. No fevers or chills. Plan: 1. Continue IV Zosyn. 2. Discontinue IV vancomycin. 3. Follow surgical report on condition of wound. 10/16/17 15:24 Subjective: Patient is resting comfortably in his hospital bed. States that he is able to move his right arm better than yesterday. Less swollen. No fevers or chills. Objective: Zosyn # 3 Vancomycin # 3 Vital Signs Temp Pulse Resp BP Pulse Ox 36.6 C 68 12 134/71 H 95 10/16/17 08:00 10/16/17 08:00 10/16/17 08:00 10/16/17 08:00 10/16/17 08:00 Microbiology 10/13/17 16:02 Gram Stain - Final Elbow - Eswab 10/13/17 16:02 Gram Stain - Final Elbow - Eswab 10/13/17 15:00 Gram Stain - Final Elbow - Swab Wound Culture - Final Streptococcus Intermedius Laboratory Results 10/16/17 05:45 10/16/17 05:45 10/15/17 10/16/17 10/17/17 05:59 05:59 05:59 Intake Total 1450 424 Output Total 1250 Balance 200 424 ESR 54 MM/HR (0-15) H 10/13/17 13:47 - Physical Exam General Appearance: WD/WN, alert, no apparent distress, non-toxic Cardiac/Chest: regular rate, rhythm, No tachycardia Extremities: swelling (Distal to the antecubital area.), No non-tender, No normal inspection (Right antecubital area with postoperative dressing. No significant erythema proximally.) ICD10 Worksheet Patient Problems: Problems Problem Status Onset Intravenous cocaine abuse Acute Right arm cellulitis Acute
[2017-10-17] MEDS: PIPERACILLIN/TAZO 3.375 GM/DEX 50 ML IV SCH ×3 (00:27→11:35)
[2017-10-17] MEDS: HYDROmorphONE/DILAUDID 2 MG/ML INJ IVP PRN ×2 (00:27→09:01)
[2017-10-17] MEDS: IBUPROFEN 200 MG TAB PO PRN ×2 (05:29→11:34)
[2017-10-17] MEDS: oxyCODONE IR 5 MG TAB PO PRN ×4 (05:29→22:45)
[2017-10-17] MEDS: NICOTINE 21 MG/24 HR PATCH TD SCH (09:02)
[2017-10-17] MEDS: SENNOSIDES/DOCUSATE SODIUM TAB PO SCH ×2 (09:02→22:45)
[2017-10-17] MEDS: PATCH REMOVAL 1 EA PATCH TD SCH (10:21)
--- NOTE | 2017-10-17 10:26 | SOAPPROG ---
SOAP Progress Note Assessment/Plan: Assessment:POD#4 s/p R elbow abscess I&D -ROM is improved -all cultures growing Staph intermedius Plan: -cont IV abx, tailored to culture results -follow cultures -pain ctrl -appreciate care of hospitalist and ID service -daily dressing changes -wound care for anterior elbow wound 10/17/17 10:24 Subjective: States that his elbow is more sore today, but admits that the ROM is improving Objective: Vital Signs Temp Pulse Resp BP Pulse Ox 36.7 C 89 16 111/70 93 10/17/17 07:36 10/17/17 07:36 10/17/17 07:36 10/17/17 07:36 10/17/17 07:36 Microbiology 10/13/17 16:02 Gram Stain - Final Elbow - Eswab 10/13/17 16:02 Gram Stain - Final Elbow - Eswab 10/13/17 15:00 Gram Stain - Final Elbow - Swab Wound Culture - Final Streptococcus Intermedius Laboratory Results 10/16/17 05:45 10/16/17 05:45 10/16/17 10/17/17 10/18/17 05:59 05:59 05:59 Intake Total 424 450 Balance 424 450 PT 15.4 SEC (12.0-15.0) H 10/13/17 13:47 INR 1.20 (0.83-1.16) H 10/13/17 13:47 R elbow -dressing changed, there is mod serous drainage from the wound -there is a 1cm open wound at the prior site of abscess -elbow ROM 30-120, improved from yesterday ICD10 Worksheet Patient Problems: Problems Problem Status Onset Intravenous cocaine abuse Acute Right arm cellulitis Acute
--- NOTE | 2017-10-17 11:34 | HOSPPROG ---
Hospitalist Progress Note Assessment/Plan: 27y male with c/o elbow pain. #POD#4 s/p R elbow abscess I&D -cultures growing Staph intermedius -cont IV Zosyn -pain ctrl -daily dressing changes -wound care for anterior elbow wound #IVDU -he has abstained for 9 months, then used cocaine iv due to recent stressors -he knows this is an issue, motivated to stop using -HIV is negative, Hep B antibody is pending #Tobacco abuse -cessation, nicotine patch #Superficial thrombus no need for anticoagulation #Dispo unclear, cont IV abx in hospital setting Subjective: Feeling a bit better. Still having pain. Objective: Vital Signs Temp Pulse Resp BP Pulse Ox 36.7 C 89 16 111/70 93 10/17/17 07:36 10/17/17 07:36 10/17/17 07:36 10/17/17 07:36 10/17/17 07:36 Microbiology 10/13/17 16:02 Gram Stain - Final Elbow - Eswab 10/13/17 16:02 Gram Stain - Final Elbow - Eswab 10/13/17 15:00 Gram Stain - Final Elbow - Swab Wound Culture - Final Streptococcus Intermedius Laboratory Results 10/16/17 05:45 10/16/17 05:45 10/16/17 10/17/17 10/18/17 05:59 05:59 05:59 Intake Total 424 450 Balance 424 450 PT 15.4 SEC (12.0-15.0) H 10/13/17 13:47 INR 1.20 (0.83-1.16) H 10/13/17 13:47 - Physical Exam Constitutional: no apparent distress, appears nourished Eyes: PERRL, anicteric sclera Ears, Nose, Mouth, Throat: moist mucous membranes, hearing normal Cardiovascular: No JVD, No edema Respiratory: no respiratory distress, clear to auscultation Gastrointestinal: No tenderness, No ascites Skin: warm, No mottled Musculoskeletal: pain with ROM, generalized weakness Neurologic: AAOx3 Psychiatric: interacting appropriately, not anxious, not encephalopathic ICD10 Worksheet Patient Problems: Problems Problem Status Onset Intravenous cocaine abuse Acute Right arm cellulitis Acute
--- NOTE | 2017-10-17 17:00 | ASMTCMCOM ---
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 Hx of IV drug use, mostly uses cocaine but has used meth as well. He participates in the clean needle program and is aware of resources. He is still on IV abx, unlikely candidate for home infusion. Will dc independent when medically stable, CM available for any changes. DC Plan: Independent Date Signed: 10/17/2017 04:59 PM Electronically Signed By:Maryam Erazo RN
[2017-10-17] MEDS: cefTRIAXone 2 GM in STERILE WATER INJ 20 ML IV SCH (17:13)
--- NOTE | 2017-10-17 19:14 | PCMIDPN ---
Assessment/Plan: Assessment/Plan: * Right antecubital abscess due to Streptococcus intermedius associated with injection drug use status post incision and drainage: Clinically improved post incision and drainage. Marked improvement in range of motion of right upper extremity. Minimal residual cellulitic component adjacent to incision line. Will transition Zosyn to ceftriaxone based on isolation of Streptococcus intermedius. Anticipate likely transition to oral antibiotics in next 24-48 hours. 10/17/17 19:11 Subjective: Patient with less arm pain and improved range of motion. Objective: Vital Signs Temp Pulse Resp BP Pulse Ox 36.7 C 79 16 99/58 L 94 10/17/17 15:49 10/17/17 15:49 10/17/17 15:49 10/17/17 15:49 10/17/17 15:49 Microbiology 10/13/17 16:02 Gram Stain - Final Elbow - Eswab 10/13/17 16:02 Gram Stain - Final Elbow - Eswab Laboratory Results 10/16/17 05:45 10/16/17 05:45 10/16/17 10/17/17 10/18/17 05:59 05:59 05:59 Intake Total 424 450 Balance 424 450 ESR 54 MM/HR (0-15) H 10/13/17 13:47 Zosyn # 4 Arm cultures all with growth of Streptococcus intermedius Blood cultures x2 no growth Laboratory Tests 10/13/17 13:47 Hep Bs Antibody Positive Hep Bs Antibody, Quant 214 - Physical Exam General Appearance: alert, no apparent distress EENT: No scleral icterus, No conjunctival petechiae Respiratory: lungs clear Cardiac/Chest: regular rate, rhythm, No systolic murmur Extremities: inflammation (Right antecubital fossa with mild erythema adjacent to staple line; improved range of motion; mild tenderness and induration) Abdomen: non-tender, No distended ICD10 Worksheet Patient Problems: Problems Problem Status Onset Intravenous cocaine abuse Acute Right arm cellulitis Acute
[2017-10-18] MEDS: oxyCODONE IR 5 MG TAB PO PRN ×3 (05:52→17:13)
[2017-10-18] MEDS: NICOTINE 21 MG/24 HR PATCH TD SCH (07:54)
[2017-10-18] MEDS: SENNOSIDES/DOCUSATE SODIUM TAB PO SCH ×2 (07:54→20:22)
[2017-10-18] MEDS: cefTRIAXone 2 GM in STERILE WATER INJ 20 ML IV SCH (07:55)
[2017-10-18] MEDS: PATCH REMOVAL 1 EA PATCH TD SCH (08:09)
--- NOTE | 2017-10-18 09:50 | WOCRNPDOC ---
WOCRN Advanced Assessment Note - Skin Integrity Problem, Advanced Assess Right Upper Distal Arm Abscess Dressing Type: Theodore Bandage Dressing Description: Intact Closure Description: Sutures, Not Approximated (mostly approximated incision w/ 0.5cmx0.8cm opening directly over AC) Exudate Amount: Minimal Exudate Color: Reddish/Yellow Exudate Characteristic(s): Dried, Serosanguinous Integumentary Issue Intervention: Dressing Changed Debra Wound Tissue: Erythema, Swollen Debra Wound Swelling: Moderate Wound Bed Color: Red Wound Bed Constitution: Granulation Tissue, Tunneling (1cm, superiorly, between 11-12 o'clock) Site Odor: None Skin Integrity Problem Comment: I&D site in right AC, sutures intact, w/ discrete opening medially r/t former drain site. Wound tunnels superiorly from this opening, approximately 1cm toward 11-12 o'clock. Moderate erythema and swelling periwound, w/ patient reporting pain and limited ROM. Wound bed itself is granulating tissue, w/ some dried exudate along the margins. Flushed w/ NS, and placed a strip of Hydrofera Blue tunnel dressing into the tunnel. Covered entire wound, including sutures, w/ Hydrofera Blue Ready foam, and secured w/ Kerlix and stretch net. Plan is to change dressing q3 days and PRN. [facility] or w/ Ortho w/in 3 days of discharge.
--- NOTE | 2017-10-18 11:32 | HOSPPROG ---
Hospitalist Progress Note Assessment/Plan: 27y male with c/o elbow pain. #POD#5 s/p R elbow abscess I&D -cultures growing Staph intermedius -change to IV CTX, transition to PO abx in 1-2 days -pain ctrl -daily dressing changes -wound care for anterior elbow wound #IVDU -he has abstained for 9 months, then used cocaine iv due to recent stressors -he knows this is an issue, motivated to stop using -HIV is negative, Hep B vaccinated #Tobacco abuse -cessation, nicotine patch #Superficial thrombus no need for anticoagulation #Dispo unclear, cont IV abx in hospital setting hope for DC in 1-2 days when ok with ortho will need outpt wound care Subjective: Feeling ok. Still having pain. Objective: Vital Signs Temp Pulse Resp BP Pulse Ox 37.1 C 96 16 135/96 H 94 10/18/17 08:00 10/18/17 08:00 10/18/17 08:00 10/18/17 08:00 10/18/17 08:00 Microbiology 10/13/17 16:02 Gram Stain - Final Elbow - Eswab 10/13/17 16:02 Gram Stain - Final Elbow - Eswab Laboratory Results 10/16/17 05:45 10/16/17 05:45 10/17/17 10/18/17 10/19/17 05:59 05:59 05:59 Intake Total 450 Balance 450 PT 15.4 SEC (12.0-15.0) H 10/13/17 13:47 INR 1.20 (0.83-1.16) H 10/13/17 13:47 - Physical Exam Constitutional: no apparent distress, appears nourished Eyes: PERRL, anicteric sclera Ears, Nose, Mouth, Throat: moist mucous membranes, hearing normal Cardiovascular: No JVD, No edema Respiratory: no respiratory distress, clear to auscultation Gastrointestinal: No tenderness, No ascites Skin: warm, erythema Musculoskeletal: joint tenderness, No normal joint ROM Neurologic: AAOx3 Psychiatric: interacting appropriately, not anxious, not encephalopathic ICD10 Worksheet Patient Problems: Problems Problem Status Onset Right arm cellulitis Acute Intravenous cocaine abuse Acute
--- NOTE | 2017-10-18 13:39 | PCMIDPN ---
Assessment/Plan: Assessment: Right antecubital abscess secondary to Streptococcus intermedius following injection drug use with cocaine. Patient continues to improve. Still has pain with dressing changes. Plan: 1. Continue IV ceftriaxone. 2. Follow surgical report on condition of wound. Subjective: Patient is feeling better. Still with tender right-sided antecubital area. No fevers or chills. Objective: Ceftriaxone # 2 Vital Signs Temp Pulse Resp BP Pulse Ox 37.1 C 96 16 135/96 H 94 10/18/17 08:00 10/18/17 08:00 10/18/17 08:00 10/18/17 08:00 10/18/17 08:00 Microbiology 10/13/17 16:02 Gram Stain - Final Elbow - Eswab 10/13/17 16:02 Gram Stain - Final Elbow - Eswab Laboratory Results 10/16/17 05:45 10/16/17 05:45 10/17/17 10/18/17 10/19/17 05:59 05:59 05:59 Intake Total 450 Balance 450 ESR 54 MM/HR (0-15) H 10/13/17 13:47 - Physical Exam General Appearance: WD/WN, alert, no apparent distress, non-toxic Respiratory: lungs clear, normal breath sounds, No respiratory distress Cardiac/Chest: regular rate, rhythm, No tachycardia Extremities: non-tender, No normal inspection Neuro/Psych: alert, normal mood/affect, oriented x 3 ICD10 Worksheet Patient Problems: Problems Problem Status Onset Intravenous cocaine abuse Acute Right arm cellulitis Acute
--- NOTE | 2017-10-18 14:54 | SOAPPROG ---
SOAP Progress Note Assessment/Plan: Assessment:POD#5 s/p R elbow abscess I&D -improving -wound care changed dressing today -all cultures growing Staph intermedius Plan: -cont IV abx, tailored to culture results -follow cultures -pain ctrl -appreciate care of hospitalist and ID service -wound care for anterior elbow wound 10/17/17 10:24 10/18/17 14:53 Subjective: Doing ok this afternoon. Elbow sore after dressing change by wound care Objective: Vital Signs Temp Pulse Resp BP Pulse Ox 37.1 C 96 16 135/96 H 94 10/18/17 08:00 10/18/17 08:00 10/18/17 08:00 10/18/17 08:00 10/18/17 08:00 Microbiology 10/13/17 16:02 Gram Stain - Final Elbow - Eswab 10/13/17 16:02 Gram Stain - Final Elbow - Eswab Laboratory Results 10/16/17 05:45 10/16/17 05:45 10/17/17 10/18/17 10/19/17 05:59 05:59 05:59 Intake Total 450 Balance 450 PT 15.4 SEC (12.0-15.0) H 10/13/17 13:47 INR 1.20 (0.83-1.16) H 10/13/17 13:47 R elbow -elbow wrapped -ROM 30-110 -full ROM all digits ICD10 Worksheet Patient Problems: Problems Problem Status Onset Intravenous cocaine abuse Acute Right arm cellulitis Acute
[2017-10-19] MEDS: oxyCODONE IR 5 MG TAB PO PRN ×2 (03:26→08:21)
[2017-10-19 08:10] VITALS: BP 127/84; PULSE 89; RESP 14; TEMP 98.6; O2SAT 94
[2017-10-19] MEDS: SENNOSIDES/DOCUSATE SODIUM TAB PO SCH (08:21)
[2017-10-19] MEDS: cefTRIAXone 2 GM in STERILE WATER INJ 20 ML IV SCH (08:22)
[2017-10-19] MEDS: NICOTINE 21 MG/24 HR PATCH TD SCH (08:22)
--- NOTE | 2017-10-19 11:06 | PCMIDPN ---
Assessment/Plan: Assessment/Plan: 1. Right AC fossa abscess: s/p I & D - operative cultures so far with strep intermedius. susceptibilities pending - blood cx ngtd - Currently on Ceftriaxone - Will transition to oral keflex x 10 days. needs f/u at wound care center for dressing changes and ortho for suture removal etc. - side effects of therapy reviewed with patient. - care coordinated with hospitalist team . 2. IVda: - HIV/HCV/Hepatitis B s AG negative - Hepatitis B s AB positive. Meds Ceftriaxone s/p vanco 1. 25gm q12- 10/14/17 zosyn 3.375gm q6- 09/20/17 Subjective: afebrile. feels better. less pain. his still feels his bicips tendon is tight. denies sob, abd pain or diarrhea. Objective: Vital Signs Temp Pulse Resp BP Pulse Ox 37.0 C 89 14 127/84 H 94 10/19/17 08:00 10/19/17 08:00 10/19/17 08:00 10/19/17 08:00 10/19/17 08:00 Microbiology 10/13/17 14:05 Blood Culture - Final Blood 10/13/17 13:47 Blood Culture - Final Blood 10/13/17 16:02 Gram Stain - Final Elbow - Eswab 10/13/17 16:02 Gram Stain - Final Elbow - Eswab Laboratory Results 10/16/17 05:45 10/16/17 05:45 10/18/17 10/19/17 10/20/17 05:59 05:59 05:59 Intake Total 1500 Balance 1500 ESR 54 MM/HR (0-15) H 10/13/17 13:47 - Physical Exam General Appearance: alert, no apparent distress Respiratory: lungs clear Cardiac/Chest: regular rate, rhythm Extremities: No swelling Abdomen: normal bowel sounds, non-tender, soft, No distended Skin: other (right AC fossa: incision site noted with sutures present, with one area open and packed with hydrafera blue. mild slough noted on edge. no erythema. ), No erythema ICD10 Worksheet Patient Problems: Problems Problem Status Onset Intravenous cocaine abuse Acute Right arm cellulitis Acute
--- NOTE | 2017-10-19 12:53 | ASMTCMCOM ---
CM Note CM Note Notes: Spoke w/ pt re; dc poc. He will return to the home that he shares with roomates, hardcopies of prescriptions given (abx and narc). CM also gave work excuse letter and brochure for the wound care clinic, I called and left a message for [facility] to reach out to pt if he doesn't follow up on Saturday. Pt aware he is supposed call on Saturday morning to schedule dressing change. Print out of Narcotics Anonymous support groups given to patient. DC Plan: Independent Date Signed: 10/19/2017 12:52 PM Electronically Signed By:Maryam Erazo RN
--- NOTE | 2017-10-19 14:02 | GDS ---
[f rep st] DISCHARGE SUMMARY DISCHARGE DIAGNOSES: 1. Right antecubital fossa abscess. 2. History of IV drug abuse. 3. Pain. 4. Tobacco abuse. 5. Superficial thrombus. CONSULTATIONS: 1. Infectious Disease. 2. Stalin Cobos MD, of Orthopedics. STUDIES AND PROCEDURES DONE: I and D. PHYSICAL EXAMINATION: Generally, the patient is alert. Vital signs are afebrile at 37, pulse is 89, respiratory rate IS 14, blood pressure is 127/84, he is saturating 94% on room air. I have seen AND evaluated the patient on the day of discharge. HOSPITAL COURSE: 1. Mr. Muir is 27-year-old male who presented to the emergency room with complaints of right elbow pain. He was evaluated and diagnosed with a right AC fossa abscess. During this hospitalization, denise cheung was treated with IV antibiotic therapy. He received surgical intervention per Dr. Cobos. He also re ceived an infectious disease consultation. His abscess is significantly improving. He will require continued wound care after the time of discharge (which has been arranged for him) as well as oral an tibiotics. He is being discharged on oral Keflex and can follow up outside the hospital. He is also getting a prescription for oxycodone IR (#15). 2. IV drug abuse. The patient has received education during this hospitalization about cessation. 3. Tobacco abuse. 4. Superficial thrombus. No need for anticoagulation or intervention. DISCHARGE MEDICATIONS: Please refer to EMR form. The patient is being discharged on Keflex 500 mg p .o. q.6 hours. DISPOSITION: Mr. Muir will be discharged independently home. Followup will be with Dr. Cobos as wel sanjay as outpatient wound care. He has received these instructions at length. I have discussed the phil ent's disposition with case management as well as Dr. Chavez of infectious disease. They are both in ag reement with this plan. I spent greater than 35 minutes in the care, coordination, and management of this patient's dispositi on. /[id number]/MODL
[2017-10-19] MEDS: PATCH REMOVAL 1 EA PATCH TD SCH (15:06)
== END 2017-10-19 12:52 | disposition home or self-care (01) | DRG 603 ==
LOC: OBSVTOIN 11:03 → F3E 14:13
PROVIDERS: ADMIT Hospitalist; ATTEND Hospitalist
PROC: 0J9D00Z Drainage of Right Upper Arm Subcutaneous Tissue and Fascia with Drainage Device, Open Approach (ICD-10-PCS; principal; 2017-10-13 16:00)
PROC: 0HBBXZZ Excision of Right Upper Arm Skin, External Approach (ICD-10-PCS; principal; 2017-10-13 16:00)
DX: L02.413 Cutaneous abscess of right upper limb (principal); B95.5 Unspecified streptococcus as the cause of diseases classified elsewhere; I82.611 Acute embolism and thrombosis of superficial veins of right upper extremity; R63.6 Underweight; Z68.20 Body mass index [BMI] 20.0-20.9, adult; R56.9 Unspecified convulsions; F17.210 Nicotine dependence, cigarettes, uncomplicated; F14.90 Cocaine use, unspecified, uncomplicated
CPT/HCPCS: 86704-90; C1751; G0472; J0690; J0696; J1170; J2250; J2543; J2704; J2997; J3010; J3370